=== PATIENT | female | born 2000 | race Caucasian/White ===

== ENCOUNTER 2020-10-19 23:16 | Emergency (ER) | payer OTHER ==
[~2020-10-19 23:16] MED LIST: MACROBID100 MG PO; PYRIDIUM100 MG PO
[2020-10-20 01:25] LABS: BASOPHIL 0.5 % (0-2); HCT 41.5 % (37.0-47.0); HGB 13.7 g/dl (12.5-16.0); LYMPHOCYTE 36.6 % (15-48); MCH 28.6 pg (25.0-31.0); MCV 86.6 fL (78.0-100.0); MONOCYTE 7.3 % (0-12); MPV 9.1 fL (6.0-9.5); NEUTROPHIL 53.3 % (41-80); NRBC 0; PLT 268 K/uL (150-400); RBC 4.79 M/uL (4.20-5.40); RDW 13.3 % (11.5-14.0); WBC 9.8 K/uL (4.0-10.5)
[2020-10-20 01:27] LABS: BILIRUBIN NEGATIVE (NEGATIVE); BLOOD NEGATIVE Ery/uL (NEGATIVE); CLARITY CLEAR (CLEAR); COLOR YELLOW (YELLOW); GLUCOSE (U) NORMAL (NORMAL); LEUKOCYTES NEGATIVE Leu/uL (NEGATIVE); NITRITE NEGATIVE (NEGATIVE); PROTEIN NEGATIVE (NEGATIVE); SPECIFIC GRAVITY 1.025 (1.001-1.030); UROBILINOGEN 0.2 mg/dL (0.2-1.0)
[2020-10-20 01:47] LABS: ALBUMIN 3.5 g/dL (3.4-5.0); BILIRUBIN - TOTAL 0.3 mg/dL (0.2-1.0); BUN/CREAT RATIO (CALC) 19.7 RATIO; CREATININE 0.76 mg/dL (0.51-0.95); GLOBULIN (CALCULATION) 3.9 g/dL; TOTAL PROTEIN 7.4 g/dL (6.4-8.2)
[2020-10-20] MEDS ORDERED: PERCOCET 5-3251 EACH PO (06:26)
[2020-10-20] MEDS ORDERED: ONDANSETRON ODT4 MG SL (06:26)
[2020-10-20] MEDS ORDERED: OMEPRAZOLE 20MG20 MG PO (15:01)
[2020-10-20] MEDS ORDERED: ELAVIL25 MG PO (15:01)
[2020-10-20] MEDS ORDERED: MONTELUKAST SOD10 MG PO (15:02)
[2020-10-20] MEDS ORDERED: FAMOTIDINE20 MG PO (15:02)
[2020-10-20] MEDS ORDERED: FLUTICASONE PRO16 GM INH (15:02)
[2020-10-20] MEDS ORDERED: VITAMIN D21250 MCG PO (15:03)
[2020-10-20] MEDS ORDERED: VENTOLIN HFA IN18 GM INH (15:03)
[2020-10-20] MEDS ORDERED: SIMVASTATIN20 MG PO (15:04)
[2020-10-22] MEDS ORDERED: MIRALAX17 GM PO (11:08)
[2020-10-22] MEDS ORDERED: ONDANSETRON HCL4 MG PO (11:08)
[2020-10-22] MEDS ORDERED: VITAMIN D PO (11:09)
[2020-10-22] MEDS ORDERED: COLACE100 MG PO (15:38)
[2020-10-22] MEDS ORDERED: OXY-IR 5MG5 MG PO (15:38)
[2020-10-22] MEDS ORDERED: ACETAMINOPHEN500 M1 PO (15:38)
== END 2020-10-20 06:40 | disposition home or self-care (01) ==
LOC: FER 23:16
PROVIDERS: Emergency Medicine Emergency Medical Services
DX: R10.11 Right upper quadrant pain (principal); R11.0 Nausea
CPT/HCPCS: 36415; 80053; 81003; 83605; 83690; 84145; 85025; J1170; J1885; J2405; J7030; Q9967

== ENCOUNTER 2020-10-22 22:35 | Emergency (ER) | payer OTHER ==
[~2020-10-22 22:35] MED LIST changes: -GAS RELIEF80 MG PO
[2020-10-22 23:09] LABS: BASOPHIL 0.2 % (0-2); EOSINOPHIL 0 % (0-5); HCT 43.8 % (37.0-47.0); HGB 14.5 g/dl (12.5-16.0); LYMPHOCYTE 8.3 % (15-48); MCH 28.6 pg (25.0-31.0); MCHC 33.1 g/dL (32.0-36.0); MCV 86.4 fL (78.0-100.0); MONOCYTE 3.9 % (0-12); MPV 9.1 fL (6.0-9.5); NEUTROPHIL 87.2 % (41-80); NRBC 0; PLT 345 K/uL (150-400); RBC 5.07 M/uL (4.20-5.40); RDW 13.2 % (11.5-14.0); WBC 16.6 K/uL (4.0-10.5)
[2020-10-22 23:21] LABS: BILIRUBIN - TOTAL 0.4 mg/dL (0.2-1.0); BUN/CREAT RATIO (CALC) 14.1 RATIO; CREATININE 0.78 mg/dL (0.51-0.95); GLOBULIN (CALCULATION) 4.3 g/dL; POTASSIUM 4.6 mmol/L (3.5-5.1); TOTAL PROTEIN 8.3 g/dL (6.4-8.2)
[2020-10-22 23:30] LABS: LACTIC ACID 3.4 mmol/L (0.4-1.9)
[2020-10-23] MEDS ORDERED: OXY-IR 5MG5 MG PO ×2 (02:33→16:07)
[2020-10-23] MEDS ORDERED: GAS RELIEF80 MG PO (02:37)
[2020-10-23] MEDS ORDERED: COLACE100 MG PO (02:37)
== END 2020-10-23 03:30 | disposition home or self-care (01) ==
LOC: FER 22:35
PROVIDERS: Emergency Medicine Emergency Medical Services
DX: G89.18 Other acute postprocedural pain (principal); R10.11 Right upper quadrant pain; I10 Essential (primary) hypertension; J45.909 Unspecified asthma, uncomplicated; Z87.19 Personal history of other diseases of the digestive system; Z90.49 Acquired absence of other specified parts of digestive tract; Z88.6 Allergy status to analgesic agent
CPT/HCPCS: 36415; 74018; 80053; 83605; 84145; 85025; J1170; J1885; J2060; J2405; J7030

== ENCOUNTER → 2020-10-22 | Day surgery (SDC) | payer OTHER ==
[~2020-10-22] VITALS: Ht 170.2 cm; Wt 122.9 kg
[~2020-10-22] MED LIST changes: +ACETAMINOPHEN500 M1 PO; +COLACE100 MG PO; +ELAVIL25 MG PO; +FAMOTIDINE20 MG PO; +FLUTICASONE PRO16 GM INH; +GAS RELIEF80 MG PO; +MIRALAX17 GM PO; +MONTELUKAST SOD10 MG PO; +OMEPRAZOLE 20MG20 MG PO; +ONDANSETRON HCL4 MG PO; +ONDANSETRON ODT4 MG SL; +OXY-IR 5MG5 MG PO; +PERCOCET 5-3251 EACH PO; +SIMVASTATIN20 MG PO; +VENTOLIN HFA IN18 GM INH; +VITAMIN D PO; +VITAMIN D21250 MCG PO
[2020-10-22 11:16] LABS: HCG (URINE) SCREEN NEGATIVE (NEGATIVE)
[2020-10-22 11:44] LABS: INR 1.1 (0.9-1.2); PROTHROMBIN TIME 13.5 SECONDS (11.4-13.6); PTT 32.5 SECONDS (22.2-34.7)
== END | disposition home or self-care (01) ==
LOC: FAS 10:15
PROVIDERS: Anesthesiology
DX: K81.1 Chronic cholecystitis (principal); K82.8 Other specified diseases of gallbladder; K66.0 Peritoneal adhesions (postprocedural) (postinfection); K21.9 Gastro-esophageal reflux disease without esophagitis; M79.7 Fibromyalgia; E28.2 Polycystic ovarian syndrome; J45.909 Unspecified asthma, uncomplicated; E78.00 Pure hypercholesterolemia, unspecified; K58.9 Irritable bowel syndrome, unspecified; E66.01 Morbid (severe) obesity due to excess calories; Z79.899 Other long term (current) drug therapy; Z88.6 Allergy status to analgesic agent; Z91.030 Bee allergy status
CPT/HCPCS: 36415; 84703; 85610; 85730; 93005; J0690; J1100; J1170; J1644; J2250; J2405; J2704; J2710; J3010; J7120